=== PATIENT | female | born 1950 | race Caucasian/White ===

== ENCOUNTER 2022-11-13 12:55 | Emergency (ER) | payer MEDICARE, BC, SELFPAY ==
[2022-11-13 13:17] VITALS: BP 135/60; PULSE 101; RESP 16; TEMP 35.3
--- NOTE | 2022-11-13 13:33 | ED.LOWEXIN ---
HPI - Extremity Injury (Lower) General Chief Complaint: Extremity Injury, Lower Stated Complaint: Left Foot Pain Time Seen by Provider: 11/13/22 13:33 Source: patient Mode of arrival: ambulatory Limitations: no limitations History of Present Illness HPI Narrative: 72-year-old female with history of peripheral artery disease presented for complaint of left foot pain, discoloration, numbness worsening over the past couple of weeks. Pain is severe when attempting to bear weight. Endorses cracking to the skin of the foot, which she states she ignored and attributed to foot fungus. Peeling and pain has worsened. She is scheduled with vascular surgeon 01/02/23. Reports angioplasty to left leg about one year ago with Dr Robert at [facility]. Related Data Home Medications Medication Instructions Recorded Confirmed amiodarone 200 mg tablet mg 11/13/22 amlodipine 5 mg tablet mg 11/13/22 aspirin 81 mg chewable tablet 81 mg PO DAILY 11/13/22 11/13/22 atorvastatin 20 mg tablet mg 11/13/22 furosemide 40 mg tablet mg 11/13/22 isosorbide mononitrate 30 mg mg PO 11/13/22 tablet,extended release 24 hr metoprolol succinate 100 mg mg PO 11/13/22 tablet,extended release 24 hr potassium chloride 20 mEq meq PO 11/13/22 tablet,extended release(part/cryst) (Ange Todd) Allergies Allergy/AdvReac Type Severity Reaction Status Date / Time No Known Allergies Allergy Verified 11/13/22 13:21 Review of Systems Review of Systems: CONSTITUTIONAL: Denies body aches, fever, chills EYES: Denies visual changes ENT: Denies rhinorrhea, congestion CARDIOVASCULAR: Denies chest pain, palpitations RESPIRATORY: Denies worsening cough or dyspnea. GASTROINTESTINAL: Denies abdominal pain, nausea, vomiting, or diarrhea. SKIN: Reports cracking and peeling to left foot, purple foot Denies rash, itching MUSCULOSKELETAL: Denies back pain, joint pain, or myalgia. NEUROLOGIC: Denies headache, dizziness All systems reviewed & are unremarkable except as noted in HPI and below PMFSH Past Medical History Medical History Chronic kidney disease, stage 2 (mild) Elevated cholesterol Essential (primary) hypertension Peripheral artery disease Presence of combination internal cardiac defibrillator (ICD) and pacemaker Family History Family History Mother Family history of liver disease Father Family history of heart disease in male family member before age 55 Social History Social History Smoking status: Heavy tobacco smoker Second hand tobacco smoke exposure: No Smoking end date: 04/15/14 Alcohol intake: current Comments At time of signature, I have reviewed and agree with nursing past medical, surgical, social and family history unless otherwise noted. Please see nursing chart for further information. There is no relevant family history pertinent to the presenting complaint Exam Narrative: GENERAL: mildly ill-appearing, well-nourished, and in no acute distress. HEAD: Normocephalic, atraumatic. EYES: conjunctivae clear NECK: Supple. CHEST: Speaks in full sentences. No respiratory distress. HEART: Regular rate and rhythm. Normal and equal peripheral pulses. EXTREMITIES: LLE with 2+ pitting edema, foot is cold and purple in color, toes dark purple. Pedal pulse weak and thready with doppler. Limited sensation to toes, reports sensation to painful stimuli to toes. Decreased sensation to mid foot. Limited ROM to toes. Reports pain with weight bearing. Skin is flaky to foot. Cap refill >3seconds. SKIN: Warm, dry, no rash. NEURO: Alert and oriented x3. PSYCH: Normal mood and affect Course Course Emergency Course: Patient is aware of diagnosis, understands and agrees to treatment plan. Anticipatory guidance given. Patient agrees to follow-up as directe
[2022-11-13 13:37] VITALS: PULSE 83; RESP 16; O2SAT 96
== END 2022-11-13 14:05 | disposition short-term general hospital (02) ==
PROVIDERS: Emergency Provider Nurse Practitioner Family; PCP Family Medicine
DX: M79.672 Pain in left foot (principal); Z87.891 Personal history of nicotine dependence; I13.10 Hypertensive heart and chronic kidney disease without heart failure, with stage 1 through stage 4 chronic kidney disease, or unspecified chronic kidney disease; N18.2 Chronic kidney disease, stage 2 (mild); E78.00 Pure hypercholesterolemia, unspecified; I73.9 Peripheral vascular disease, unspecified; Z95.810 Presence of automatic (implantable) cardiac defibrillator
CPT/HCPCS: 99212; G0463

== ENCOUNTER 2022-12-11 18:57 | Emergency (ER) | payer MEDICARE, BC, SELFPAY ==
--- NOTE | ~2022-12-11 | US_ITS ---
Duplex Sonography of the bilateral lower extremities: Indication: Swelling, erythema Sagittal and transverse B-mode images as well as color-flow imaging were performed on the right and l eft femoral and popliteal veins. B-mode examination was done without and with compression in the tra nsverse plane. There is good visualization of the bilateral common femoral, proximal profunda femora l, superficial femoral, greater saphenous, and popliteal veins. Normal flow was seen on color-flow im aging. Normal compressibility was demonstrated. Visualized calf veins are also patent. Impression: No evidence of deep vein thrombosis involving either lower extremity. Reviewed, dictated and finalized at location M. Impression: No evidence of deep vein thrombosis involving either lower extremit y.
--- NOTE | ~2022-12-11 | CT_ITS ---
EXAMINATION: CT abdomen pelvis wo con DATE: 12/11/2022 20:11 INDICATION: abdominal pain TECHNIQUE: Computed tomography (CT) of the abdomen and pelvis was performed without intravenous contr ast. Automated exposure control and iterative reconstruction technique were employed. The dose-length product was 387.82 mGy-cm. COMPARISON: None. FINDINGS: Lower thorax: Trace left and moderate right pleural fluid collections. Incompletely visualized pacing wire. Mitral annulus calcification. Coronary artery/aortic valve calcifications. Atrial occlusion de vice. Cardiomegaly. Liver: The liver is small and nodular. Biliary/Gallbladder: Gallbladder is absent. No bile duct dilation. Pancreas: Atrophy Spleen: Normal. Adrenals:No mass. Kidneys: Simple left midpole cyst. No suspicious mass, obstructing stone, or hydronephrosis. GI tract: No small bowel dilation. Mild diffuse large bowel dilation. The colon is fluid-filled, as c an be seen with diarrheal illness. Suggestion of mild/early pneumatosis in the distal sigmoid. Field mesentery abdominal varices. Small volume abdominal fluid. Normal appendix. Diverticulosis without di verticulitis. Mesentery/Peritoneum: No ascites, mass, or free air. Retroperitoneum: No mass. Atherosclerotic abdominal aortic and/or arterial calcifications. Bilateral iliac stents. Pelvis: Pelvic organs are within normal limits. Soft Tissues: Diffuse body wall edema. Bones: No acute osseous finding. IMPRESSION: Short segment pneumatosis in the distal sigmoid concerning for bowel ischemia, with resulting diffuse large bowel ileus. Cirrhosis. Moderate right and trace left pleural effusions. Moderate ascites. Reviewed, dictated and finalized at location K.
[2022-12-11 19:00] VITALS: BP 124/83; PULSE 105; RESP 14; TEMP 36.4; O2SAT 100
[2022-12-11 19:27] LABS: Basophils Percent Auto 0.3 % (0.2-1.2); Eosinophils Percent Auto 0.2 % (0-4.4); Hematocrit 38.6 % (37.0-47.0); Hemoglobin 12.2 g/dL (12.0-15.0); Immature Granulocyte Absolute 0.06 K/mm3 (0.00-0.031); Immature Granulocyte Percent A 0.6 % (0-0.5); Lymphocytes Absolute Auto 0.47 K/mm3 (0.9-3.2); Lymphocytes Percent Auto 4.4 % (18.3-44.2); Mean Corpuscular HGB Conc 31.6 g/dl (32-36); Mean Corpuscular Hemoglobin 29.5 pg (26-34); Mean Corpuscular Volume 93.2 fl (80-100); Monocytes Absolute Auto 0.9 K/mm3 (0.1-0.6); Monocytes Percent Auto 8.5 % (2.6-8.5); Neutrophils Absolute Auto 9.2 K/mm3 (1.3-6.7); Platelet Count Result 456 k/mm3 (150-375); Red Blood Count 4.14 M/mm3 (4.2-5.4); Red Cell Distribution Width 15.7 % (11.5-14.5); White Blood Count 10.7 K/mm3 (4.5-10.0)
[2022-12-11 19:33] VITALS: BP 119/90; PULSE 108; RESP 16; O2SAT 94
[2022-12-11 19:35] LABS: Alanine Aminotransferase 15 U/L (6-35); Albumin Level 3.3 g/dL (3.5-5.1); Alkaline Phosphatase 119 U/L (38-126); Anion Gap 11 mmol/L (8-16); Aspartate Amino Transferase 38 U/L (14-36); Bilirubin,Total 0.7 mg/dL (0.2-1.3); Blood Urea Nitrogen 109 mg/dL (7-17); Calcium 8.8 mg/dL (8.4-10.2); Carbon Dioxide 29 mmol/L (22-30); Chloride 95 mmol/L (98-107); Estimated Glomerular Filt Rate 19; Glucose 125 mg/dL (65-110); Lipase 308 U/L (23-300); Sodium 135 mmol/L (137-145)
[2022-12-11 20:06] LABS: Schistocytes None Seen (NORMAL)
[2022-12-11 20:07] LABS: Anisocytosis 1+ (NORMAL); Platelet Estimate Increased (Adequate); Poikilocytosis 1+ (NORMAL)
[2022-12-11 20:30] LABS: Add Urine Microscopic? YES; Appearance Urine Clear (Clear); Bacteria Urine None Seen /hpf; Bilirubin Urine Negative (Negative); Blood Urine Negative (Negative); Color Urine Yellow (Yellow); Glucose Urine UA Negative (Negative); Hyaline Casts Urine Present /lpf; Ketones Urine Trace mg/dL (Negative); Leukocyte Esterase Ur Negative LEU/UL (Negative); Nitrate Urine Negative (Negative); Non Pathogenic Casts >20; Protein Urine 1+ mg/dL (Negative); RBC Urine 0-2 /hpf (0-2); Specific Grav Ur 1.016 (1.001-1.035); Squamous Epithelial Cell Urine None seen /hpf (Few); Urobilinogen Urine 0.2 mg/dL (<2.0); WBC Urine 0-5 /hpf
[2022-12-11 20:45] VITALS: BP 119/80; PULSE 110; RESP 20; O2SAT 97
[2022-12-11] MEDS: ONDANSETRON INJ 4 MG/2 ML VIAL IV PUSH (21:01)
[2022-12-11] MEDS: SODIUM CHLORIDE 0.9% IV 1,000 ML 999 ML IV CONT (21:01)
--- NOTE | 2022-12-11 21:17 | ED.ABDPAIN ---
HPI - Abdominal Pain General Chief Complaint: Abdominal Pain Stated Complaint: PARTIAL BOWEL OBSTRUCTION ON KUB AT FACILITY Time Seen by Provider: 12/11/22 19:23 Source: patient and family Mode of arrival: EMS Limitations: clinical condition History of Present Illness HPI narrative: Patient is a 72 y/o female who presents to the ED via EMS with report of abdominal pain. Patient is a resident of [facility]. Per family at bedside, patient has been complaining of abdominal pain and nausea over the last couple of days. She had abdominal imaging performed as an outpatient at the [facility] that showed air distention and possible small bowel obstruction. She was then sent here for further eval. Patient c/o diffuse pain and nausea currently. She has not had any vomiting that family is aware of. They deny any known fevers. Son at bedside reports patient had a vascular procedure, what sounds like a balloon angioplasty, in her left lower leg last Saturday at [facility]. She was discharged from there to [facility]. Related Data Home Medications Medication Instructions Recorded Confirmed amiodarone 200 mg tablet mg 11/13/22 11/28/22 amlodipine 5 mg tablet mg 11/13/22 11/28/22 aspirin 81 mg chewable tablet 81 mg PO DAILY 11/13/22 11/28/22 atorvastatin 20 mg tablet mg 11/13/22 11/28/22 furosemide 40 mg tablet mg 11/13/22 11/28/22 isosorbide mononitrate 30 mg mg PO 11/13/22 11/28/22 tablet,extended release 24 hr metoprolol succinate 100 mg mg PO 11/13/22 11/28/22 tablet,extended release 24 hr potassium chloride 20 mEq meq PO 11/13/22 11/28/22 tablet,extended release(part/cryst) (Klor-Con M) Allergies Allergy/AdvReac Type Severity Reaction Status Date / Time No Known Allergies Allergy Verified 12/11/22 19:17 Review of Systems Review of Systems: CONSTITUTIONAL: Reports decreased intake. Denies fever, chills, or sweats. CARDIOVASCULAR: Denies chest pain. RESPIRATORY: Denies dyspnea. GASTROINTESTINAL: See HPI. GENITOURINARY: Denies dysuria or hematuria. All systems reviewed & are unremarkable except as noted in HPI and below PMFSH Past Medical History Medical History Chronic kidney disease, stage 2 (mild) Elevated cholesterol Essential (primary) hypertension Peripheral artery disease Presence of combination internal cardiac defibrillator (ICD) and pacemaker Family History Family History Mother Family history of liver disease Father Family history of heart disease in male family member before age 55 Social History Social History Smoking status: Heavy tobacco smoker Second hand tobacco smoke exposure: No Smoking end date: 04/15/14 Alcohol intake: current Exam Narrative: GENERAL: Mildly ill-appearing, somewhat somnolent, non-toxic, in no acute distress. HEAD: Normocephalic, atraumatic. NECK: Supple. No adenopathy, no masses. RESPIRATORY: Airway patent, respirations nonlabored. Clear to auscultation bilaterally, no rales, rhonchi, wheezing. CARDIOVASCULAR: Mildly tachycardic with regular rhythm without murmurs, rubs, or gallops. Peripheral pulses 2+ and equal bilaterally. ABDOMINAL: Abdomen somewhat distended, but still soft, diffusely tender, no hepatosplenomegaly. Hypoactive BS. MUSCULOSKELETAL: Moves all extremities. No gross deformities. Zeyad appearance to L toes which family reports is chronic, venous stasis changes to laura lower leg, L > R. Minimal edema of left lower leg. SKIN: Warm, dry, normal color. No rashes. NEURO: Alert, follows commands and answers all questions, but appears fatigued. Speech clear. Cranial nerves II-XII grossly intact. Steady gait. No ataxic movements. PSYCHIATRIC: Somewhat somnolent. Normal interaction. Course Vital Signs Vital signs: Vital Signs Temperature 97.6 F 12/11
[2022-12-11 21:45] LABS: Lactic Acid Reflex 1.3 mmol/L (0.7-2.0)
[2022-12-11 21:56] VITALS: BP 107/75; PULSE 104; RESP 13; O2SAT 97
[2022-12-11 23:27] VITALS: BP 124/80; PULSE 109; RESP 19; O2SAT 96
[2022-12-12 00:38] VITALS: BP 111/73; PULSE 112; RESP 19; O2SAT 98
[2022-12-12 01:23] VITALS: BP 108/77; PULSE 103; RESP 15; O2SAT 99
[2022-12-12 01:26] VITALS: BP 108/77; PULSE 108; RESP 15; O2SAT 97
== END 2022-12-12 02:14 | disposition short-term general hospital (02) ==
PROVIDERS: Emergency Provider Physician Assistant; PCP Family Medicine
DX: K63.89 Other specified diseases of intestine (principal); K56.0 Paralytic ileus; N17.9 Acute kidney failure, unspecified; I73.9 Peripheral vascular disease, unspecified; R60.0 Localized edema; I12.9 Hypertensive chronic kidney disease with stage 1 through stage 4 chronic kidney disease, or unspecified chronic kidney disease; N18.2 Chronic kidney disease, stage 2 (mild); E78.00 Pure hypercholesterolemia, unspecified; Z95.810 Presence of automatic (implantable) cardiac defibrillator; Z87.891 Personal history of nicotine dependence; Z79.82 Long term (current) use of aspirin; K74.60 Unspecified cirrhosis of liver; R18.8 Other ascites
CPT/HCPCS: 36415; 74176; 80053; 81001; 83605; 83690; 85025; 87040; 93970; 96361; 96374; 99285; J2405; J7030